=== PATIENT | male | born 1985 | race Caucasian/White ===

== ENCOUNTER 2018-03-28 15:30 | Emergency (ER) | payer MEDICARE, MEDICAID ==
[2018-03-28] MEDS ORDERED: NS 0.9% 1000 ML* 1,000 ML IV ONE (15:49)
[2018-03-28 16:07] LABS: ABS Basophils 0.1 10^3/ul (0-0.2); ABS Eosinophils 0 10^3/ul (0-0.6); ABS Lymphocytes 3.1 10^3/ul (1.0-4.8); ABS Monocytes 0.9 10^3/ul (0-0.8); ABS Neutrophils 7.4 10^3/ul (1.5-7.7); ABS Nucleated RBC 0 10^3/ul; Eosinophil % 0.3 % (0-6); Hematocrit 40 % (42-52); Hemoglobin 13.6 g/dl (14.0-18.0); Lymphocyte % 27.1 % (25-47); Mean Corpuscular HGB Conc 34 g/dl (31-36); Mean Corpuscular Hemoglobin 30 pg (27-31); Mean Corpuscular Volume 88 fL (80-94); Mean Platelet Volume 7.7 um3 (7.4-10.4); Nucleated Red Blood Cells % 0.1; Platelet Count 284 10^3/ul (150-450); Red Blood Count 4.56 10^6/ul (4.0-5.4); Red Cell Distribution Width 14 % (10.5-15); White Blood Count 11.4 10^3/ul (3.5-10.8)
[2018-03-28 16:25] LABS: EGFR Non-African American 110.7 (>60)
[2018-03-28 16:34] LABS: Urine Appearance Cloudy; Urine Blood Negative (Negative); Urine Color Yellow; Urine Ketones Negative (Negative); Urine Protein Negative (Negative); Urine Specific Gravity 1.017 (1.010-1.030); Urine Urobilinogen Positive (Negative)
[2018-03-28] MEDS ORDERED: Ketorolac INJ* 30 MG/ML 1 ML VIAL IV PUSH ONE (16:54)
--- NOTE | 2018-03-28 18:46 | ED ---
Lilia Green Emily, scribed for Misael Cole MD on 03/28/18 at 1550 . Abdominal Pain/Male - HPI Summary HPI Summary: This patient is a 32 year old M BIBA to [facility] with a chief complaint of diffuse lower abd pain radiating to back that began this morning. The pt reports that the pain worsened following him eating this afternoon. The patient rates the pain 6/10 in severity. Symptoms aggravated by food. Symptoms alleviated by nothing. Patient reports diarrhea, nausea (resolved), and vomiting. Pt reports last bowel movement at 1445. - History of Current Complaint Chief Complaint: EDAbdPain Stated Complaint: ABD PAIN Hx Obtained From: Patient Onset/Duration: Sudden Onset, Lasting Hours, Worse Since - This afternoon Timing: Constant Severity Initially: Moderate Severity Currently: Moderate Pain Intensity: 6 Pain Scale Used: 0-10 Numeric Location: Other - Diffuse lower abd Radiates: Yes Radiates to: Back Aggravating Factor(s): Food Alleviating Factor(s): Nothing Associated Signs And Symptoms: Positive: Nausea, Vomiting, Diarrhea - Allergies/Home Medications Allergies/Adverse Reactions: Allergies Allergy/AdvReac Type Severity Reaction Status Date / Time No Known Allergies Allergy Verified 03/28/18 15:40 Home Medications: Home Medications Aspirin/Acetaminophen/Caffeine [Excedrin Migraine Caplet] 1 each PO Q8H PRN 11/14 [History Confirmed 03/28/18] Butalb/Acetamin/Caff TAB* [Fioricet TAB*] 1 - 2 tab PO DAILY PRN 03/28/18 [ History Confirmed 03/28/18] Citalopram TAB* [CeleXA TAB*] 40 mg PO DAILY 03/28/18 [History Confirmed ] Hydrochlorothiazide TAB* [Hydrodiuril TAB*] 12.5 mg PO DAILY 03/28/18 [History Confirmed 03/28/18] celeCOXIB CAP* [CeleBREX CAP*] 200 mg PO BID 03/28/18 [History Confirmed ] traMADol TAB* [Ultram*] 50 mg PO Q6HR PRN 03/28/18 [History Confirmed 03/28/18] PMH/Surg Hx/FS Hx/Imm Hx Previously Healthy: No Musculoskeletal History: Reports: Other Musculoskeletal History - Positive form of muscular dystrophy Neurological History: Reports: Hx Migraine Infectious Disease History: No Infectious Disease History: Denies: Traveled Outside the [place] in Last 30 Days - Family History Known Family History: Positive: Diabetes - Mom and grandmother - Social History Occupation: Employed Full-time Lives: Alone Alcohol Use: None Substance Use Type: Reports: None Smoking Status (MU): Never Smoked Tobacco Review of Systems Negative: Chest Pain Positive: Abdominal Pain, Vomiting, Diarrhea, Nausea All Other Systems Reviewed And Are Negative: Yes Physical Exam - Summary Physical Exam Summary: Appearance: The patient is well-nourished in no acute distress and in no acute pain. Skin: The skin is warm and dry and skin color reflects adequate perfusion. HEENT: The head is normocephalic and atraumatic. The pupils are equal and reactive. The conjunctivae are clear and without drainage. Nares are patent and without drainage. Mouth reveals moist mucous membranes and the throat is without erythema and exudate. The external ears are intact. The ear canals are patent and without drainage. The tympanic membranes are intact. Neck: the neck is supple with full range of motion and non-tender. There are no carotid bruits. There is no neck vein distension. Respiratory: Chest is non-tender. Lungs are clear to auscultation and breath sounds are symmetrical and equal. Cardiovascular: Heart is regular rate and rhythm. There is no murmur or rub auscultated. There is no peripheral edema and pulses are symmetrical and equal. Abdomen: The abdomen is soft. Minor bilateral lower abdominal tenderness. There are normal bowel sounds heard in all four quadrants and there is no organomegaly palpated. Musculoskeletal: There is no back tenderness noted. Extremities are non-tender with full range of motion. There is good capillary refill. There is no peripheral edema or calf tenderness elicited. Neurological: Patient is alert and oriented to person, place and time. The patient has symmetrical motor strength in all four extremities. Cranial nerves are grossly intact. Deep tendon reflexes are symmetrical and equal in all four extremities. Psychiatric: The patient has an appropriate affect and does not exhibit any anxiety or depression. Triage Information Reviewed: Yes Vital Signs On Initial Exam: Initial Vitals Temp Pulse Resp BP Pulse Ox 99.5 F 71 16 139/83 94 03/28/18 15:32 03/28/18 15:32 03/28/18 15:32 03/28/18 15:32 03/28/18 15:32 Vital Signs Reviewed: Yes Diagnostics - Vital Signs Vital Signs Temp Pulse Resp BP Pulse Ox 03/28/18 15:32 99.5 F 71 16 139/83 94 - Laboratory Lab Results: Lab Results 03/28/18 03/28/18 03/28/18 Range/Units 15:56 15:56 15:56 WBC 11.4 H (3.5-10.8) 10^3/ul RBC 4.56 (4.0-5.4) 10^6/ul Hgb 13.6 L (14.0-18.0) g/dl Hct 40 L (42-52) % MCV 88 (80-94) fL MCH 30 (27-31) pg MCHC 34 (31-36) g/dl RDW 14 (10.5-15) % Plt Count 284 (150-450) 10^3/ul MPV 7.7 (7.4-10.4) um3 Neut % (Auto) 64.4 (38-83) % Lymph % (Auto) 27.1 (25-47) % Norman % (Auto) 7.6 H (0-7) % Eos % (Auto) 0.3 (0-6) % Baso % (Auto) 0.6 (0-2) % Absolute Neuts (auto) 7.4 (1.5-7.7) 10^3/ul Absolute Lymphs (auto) 3.1 (1.0-4.8) 10^3/ul Absolute Monos (auto) 0.9 H (0-0.8) 10^3/ul Absolute Eos (auto) 0 (0-0.6) 10^3/ul Absolute Basos (auto) 0.1 (0-0.2) 10^3/ul Absolute Nucleated RBC 0 10^3/ul Nucleated RBC % 0.1 Sodium 138 L (139-145) mmol/L Potassium 3.9 (3.5-5.0) mmol/L Chloride 106 (101-111) mmol/L Carbon Dioxide 26 (22-32) mmol/L Anion Gap 6 (2-11) mmol/L BUN 15 (6-24) mg/dL Creatinine 0.80 (0.67-1.17) mg/dL Est GFR ( Amer) 142.3 (>60) Est GFR (Non-Af Amer) 110.7 (>60) BUN/Creatinine Ratio 18.8 (8-20) Glucose 107 H (70-100) mg/dL Lactic Acid 0.7 (0.5-2.0) mmol/L Calcium 8.4 L (8.6-10.3) mg/dL Total Bilirubin 0.40 (0.2-1.0) mg/dL AST 19 (13-39) U/L ALT 16 (7-52) U/L Alkaline Phosphatase 66 (34-104) U/L C-Reactive Protein 2.85 (< 5.00) mg/L Total Protein 6.6 (6.4-8.9) g/dL Albumin 4.0 (3.2-5.2) g/dL Globulin 2.6 (2-4) g/dL Albumin/Globulin Ratio 1.5 (1-3) Urine Color Urine Appearance Urine pH (5-9) Ur Specific [place] (1.010-1.030) Urine Protein (Negative) Urine Ketones (Negative) Urine Blood (Negative) Urine Nitrate (Negative) Urine Bilirubin (Negative) Urine Urobilinogen (Negative) Ur Leukocyte Esterase (Negative) Urine Glucose (Negative) 03/28/18 Range/Units 16:24 WBC (3.5-10.8) 10^3/ul RBC (4.0-5.4) 10^6/ul Hgb (14.0-18.0) g/dl Hct (42-52) % MCV (80-94) fL MCH (27-31) pg MCHC (31-36) g/dl RDW (10.5-15) % Plt Count (150-450) 10^3/ul MPV (7.4-10.4) um3 Neut % (Auto) (38-83) % Lymph % (Auto) (25-47) % Norman % (Auto) (0-7) % Eos % (Auto) (0-6) % Baso % (Auto) (0-2) % Absolute Neuts (auto) (1.5-7.7) 10^3/ul Absolute Lymphs (auto) (1.0-4.8) 10^3/ul Absolute Monos (auto) (0-0.8) 10^3/ul Absolute Eos (auto) (0-0.6) 10^3/ul Absolute Basos (auto) (0-0.2) 10^3/ul Absolute Nucleated RBC 10^3/ul Nucleated RBC % Sodium (139-145) mmol/L Potassium (3.5-5.0) mmol/L Chloride (101-111) mmol/L Carbon Dioxide (22-32) mmol/L Anion Gap (2-11) mmol/L BUN (6-24) mg/dL Creatinine (0.67-1.17) mg/dL Est GFR ( Amer) (>60) Est GFR (Non-Af Amer) (>60) BUN/Creatinine Ratio (8-20) Glucose (70-100) mg/dL Lactic Acid (0.5-2.0) mmol/L Calcium (8.6-10.3) mg/dL Total Bilirubin (0.2-1.0) mg/dL AST (13-39) U/L ALT (7-52) U/L Alkaline Phosphatase (34-104) U/L C-Reactive Protein (< 5.00) mg/L Total Protein (6.4-8.9) g/dL Albumin (3.2-5.2) g/dL Globulin (2-4) g/dL Albumin/Globulin Ratio (1-3) Urine Color Yellow Urine Appearance Cloudy Urine pH 8.0 (5-9) Ur Specific [place] 1.017 (1.010-1.030) Urine Protein Negative (Negative) Urine Ketones Negative (Negative) Urine Blood Negative (Negative) Urine Nitrate Negative (Negative) Urine Bilirubin Negative (Negative) Urine Urobilinogen Positive A (Negative) Ur Leukocyte Esterase Negative (Negative) Urine Glucose Negative (Negative) Result Diagrams: 03/28/18 15:56 03/28/18 15:56 Lab Statement: Any lab studies that have been ordered have been reviewed, and results considered in the medical decision making process. Re-Evaluation - Re-Evaluation First Eval Re-Evaluation Time: 18:29 Change: Improved Comment: Pt reports symptoms being much improved Abdominal Pain Fem Course/Dx - Course Course Of Treatment: Mr. Drake presented to the emergency department after having lower abdominal discomfort accompanied by nausea vomiting and diarrhea for several hours. He was here in the [place] for the [place] and was working outside in a [employer]. It is very hot today and humid and he had to use a portable toilet which was very hot. He was rehydrated here and cooled off and felt significantly better. - Diagnoses Provider Diagnoses: Gastroenteritis Discharge - Sign-Out/Discharge Documenting (check all that apply): Discharge/Admit/Transfer - Discharge home - Discharge Plan Condition: Stable Disposition: HOME Patient Education Materials: Gastroenteritis (ED) Referrals: [facility] [facility] [place]Outside] - 3 Days Additional Instructions: RETURN TO THE EMERGENCY DEPARTMENT FOR NEW OR WORSENING SYMPTOMS - Billing Disposition and Condition Condition: STABLE Disposition: HOME The documentation as recorded by the Lilia mckinnon Emily accurately reflects the service I personally performed and the decisions made by me, Misael Cole MD.
[2018-03-28 18:51] VITALS: BP 133/70
== END 2018-03-28 18:55 | disposition home or self-care (01) ==
LOC: ED 15:30
DX: K52.9 Noninfective gastroenteritis and colitis, unspecified (principal); G71.0 Muscular dystrophy; G43.909 Migraine, unspecified, not intractable, without status migrainosus; Z83.3 Family history of diabetes mellitus
CPT/HCPCS: 36415; 80053; 81003; 83605; 85025; 86140; 86703; 96361; 96374; 99283; J1885